=== PATIENT | female | born 1990 | race Two or more races ===

== ENCOUNTER 2016-10-22 12:12 | Emergency (ER) | payer MEDICAID ==
[~2016-10-22] VITALS: Ht 160 cm; Wt 68.0 kg
[2016-10-22] MEDS ORDERED: IBUPROFEN 600 MG TAB PO ONE (13:15)
[2016-10-22 14:40] VITALS: BP 120/72
== END 2016-10-22 14:54 | disposition home or self-care (01) ==
LOC: ER 12:12
DX: S00.83XA Contusion of other part of head, initial encounter (principal); Y08.89XA Assault by other specified means, initial encounter; Y93.89 Activity, other specified; Y99.8 Other external cause status; Y92.89 Other specified places as the place of occurrence of the external cause
CPT/HCPCS: 70450; 70486

== ENCOUNTER 2018-02-18 22:57 | Emergency (ER) | payer MEDICAID ==
[~2018-02-18] VITALS: Ht 160 cm; Wt 56.7 kg
[2018-02-18 23:19] LABS: Basophils # (auto) 0.1 uL; Eosinophils # (auto) 0.1 uL; Eosinophils % (auto) 1.6 % (0.0-7.0); Hematocrit 38.7 % (36.0-46.0); Hemoglobin 13.2 g/dL (12.2-16.2); Lymphocytes # (auto) 2.9 uL; Lymphocytes % (auto) 33.7 % (10.0-50.0); Mean Corpuscular Hemoglobin 30.6 pg (28.0-32.0); Mean Corpuscular Volume 89.8 fL (80.0-100.0); Monocytes # (auto) 0.7 uL; Monocytes % (auto) 8.2 % (0.0-12.0); Neutrophils # (auto) 4.8 uL; Neutrophils % (auto) 55.5 % (37.0-80.0); Platelet Count (auto) 178 10^3/uL (140-450); Red Blood Cells 4.32 10^6/uL (4.0-5.20); Red Cell Distribution Width 12.3 % (11.8-14.3); White Blood Cell 8.6 10^3/uL (4.4-10.8)
[2018-02-18 23:34] LABS: INR 0.94 (0.9-1.15); Partial Thromboplastin Time 25.3 sec (23.78-33.04); Prothrombin Time 10.1 sec (9.27-12.13)
[2018-02-18 23:37] LABS: Albumin 3.9 g/dL (3.4-5.0); BUN/Creatinine Ratio 13.3; Calcium 10.1 mg/dL (8.5-10.1); Potassium 3.9 mmol/L (3.5-5.1)
[2018-02-18 23:40] LABS: Bilirubin, Total 0.2 mg/dL (0.2-1.0); Total Protein 8.1 g/dL (6.4-8.2)
[2018-02-19 03:20] VITALS: BP 118/88
== END 2018-02-19 05:32 | disposition home or self-care (01) ==
LOC: ER 23:02
DX: O20.0 Threatened abortion (principal); Z3A.12 12 weeks gestation of pregnancy
CPT/HCPCS: 36415; 76801; 80053; 84702; 85025; 85610; 85730